=== PATIENT | male | born 1960 | race Caucasian/White ===

== ENCOUNTER → 2021-01-28 | Outpatient (CLI) | payer BC, OTHER | LOC: HEART CORB 10:51 | DX: R07.2 Precordial pain (principal); R06.02 Shortness of breath; R01.1 Cardiac murmur, unspecified; R60.0 Localized edema; I35.1 Nonrheumatic aortic (valve) insufficiency | CPT/HCPCS: 93306 ==

== ENCOUNTER → 2021-02-23 | Outpatient (CLI) | payer BC, OTHER | LOC: HEART CORB 09:15 | DX: R07.2 Precordial pain (principal); R06.02 Shortness of breath; I10 Essential (primary) hypertension; E78.5 Hyperlipidemia, unspecified; R01.1 Cardiac murmur, unspecified; F17.200 Nicotine dependence, unspecified, uncomplicated; Z83.3 Family history of diabetes mellitus | CPT/HCPCS: 78452; A9502; J2785 ==

== ENCOUNTER → 2021-07-22 | Outpatient (CLI) | payer BC, OTHER | LOC: HEART 5 08:56 | DX: R06.02 Shortness of breath (principal) | CPT/HCPCS: 94060; 94729 ==